=== PATIENT | male | born 1980 | race Caucasian/White ===

== ENCOUNTER 2018-07-24 10:43 | Emergency (ER) | payer OTHER ==
[~2018-07-24] VITALS: Ht 193 cm; Wt 97.5 kg
--- NOTE | 2018-07-24 11:27 | PHYS DOC ---
Adult General Chief Complaint Chief Complaint: COUGH HPI HPI 37-year-old male presents with cough. The patient has had a cough and chills for the last 3 days. He has had a relative's with similar illness and at least one was diagnosed with influenza. The patient has been very tired. He said difficulty, string. He has bilateral conjunctivitis, but is treating that with erythromycin ointment that was prescribed by the clinic. It has not helped. Review of Systems Review of Systems Constitutional: Denies fever or chills [] Eyes: Bilateral conjunctivitis[] HENT: Nasal congestion[] Respiratory: Cough[] Cardiovascular: No additional information not addressed in HPI [] GI: Denies abdominal pain, nausea, vomiting, bloody stools or diarrhea [] : Denies dysuria or hematuria [] Musculoskeletal: Denies back pain or joint pain [] Integument: Denies rash or skin lesions [] Neurologic: Denies headache, focal weakness or sensory changes [] Endocrine: Denies polyuria or polydipsia [] All other systems were reviewed and found to be within normal limits, except as documented in this note. Physical Exam Physical Exam Constitutional: Well developed, well nourished, no acute distress, non-toxic appearance. [] HENT: Normocephalic, atraumatic, bilateral external ears normal, oropharynx moist, no oral exudates, nose normal. [] Eyes: PERRLA, EOMI, conjunctiva are erythematous bilaterally, thin discharge. [ ] Neck: Normal range of motion, no tenderness, supple, no stridor. [] Cardiovascular:Heart rate regular rhythm, no murmur [] Lungs & Thorax: Bilateral breath sounds clear to auscultation [] Abdomen: Bowel sounds normal, soft, no tenderness, no masses, no pulsatile masses. [] Skin: Warm, dry, no erythema, no rash. [] Back: No tenderness, no CVA tenderness. [] Extremities: No tenderness, no cyanosis, no clubbing, ROM intact, no edema. [] Neurologic: Alert and oriented X 3, normal motor function, normal sensory function, no focal deficits noted. [] Psychologic: Affect normal, judgement normal, mood normal. [] EKG EKG [] Radiology/Procedures Radiology/Procedures [] Impressions: Exam performed: 2 views of the chest. Indication: COUGH, FEVER Date of Service: 07/24/2018 11:32 AM . Comparison : None available Findings: PA and lateral radiographs of the chest reveal a normal cardiomediastinal contour. The lungs are clear. No pleural fluid is seen. The visualized osseous structures are unremarkable. Impression: No acute cardiopulmonary process seen. Electronically signed by: Nory Huerta MD (07/24/2018 11:51 AM) [facility] DICTATED AND SIGNED BY: NORY HUERTA MD DATE: 07/24/18 1151 CC: SHAYAN MCCLAIN DO; PCP,DEJA ~ Course & Med Decision Making Course & Med Decision Making Pertinent Labs and Imaging studies reviewed. (See chart for details) Patient's chest x-rays negative for acute findings. His influenza is negative. I believe the patient just has a viral URI with cough. I have advised supportive care. He is stable for discharge at this time. [] Dragon Disclaimer Dragon Disclaimer This electronic medical record was generated, in whole or in part, using a voice recognition dictation system. Departure Departure: Impression: Primary Impression: Viral URI with cough Additional Impression: Viral conjunctivitis of both eyes Disposition: HOME, SELF-CARE Condition: STABLE Referrals: PCPDEJA (PCP) Patient Instructions: Upper Respiratory Infection, Adult, [id number] Problem Qualifiers SHAYAN MCCLAIN DO Jul 24, 2018 11:27
[2018-07-24 11:41] LABS: INFLUENZA A PATIENT NEGATIVE (NEGATIVE); INFLUENZA B PATIENT NEGATIVE (NEGATIVE)
--- NOTE | 2018-07-24 11:54 | RAD ---
Exam performed: 2 views of the chest. Indication: COUGH, FEVER Date of Service: 07/24/2018 11:32 AM . Comparison : None available Findings: PA and lateral radiographs of the chest reveal a normal cardiomediastinal contour. The lungs are clear. No pleural fluid is seen. The visualized osseous structures are unremarkable. Impression: No acute cardiopulmonary process seen. Electronically signed by: Nory Huerta MD (07/24/2018 11:51 AM) [facility]
[2018-07-24 12:45] VITALS: BP 139/80
== END 2018-07-24 12:45 | disposition home or self-care (01) ==
LOC: ER 10:43
DX: H10.89 Other conjunctivitis (principal); J06.9 Acute upper respiratory infection, unspecified; B97.89 Other viral agents as the cause of diseases classified elsewhere
CPT/HCPCS: 71046; 87804; 99284